=== PATIENT | female | born 1960 | race Caucasian/White ===

== ENCOUNTER 2017-12-28 01:52 | Emergency (ER) | payer OTHER | END 2017-12-28 05:02 | disposition home or self-care (01) | LOC: FTE 01:52 | DX: J20.9 Acute bronchitis, unspecified (principal); I10 Essential (primary) hypertension; Z79.82 Long term (current) use of aspirin | CPT/HCPCS: 71045; 87880; 99284-25 ==

== ENCOUNTER → 2019-07-24 | Emergency (ER) | payer OTHER ==
[2019-07-24] MEDS: TETRACAINE 0.5% 4 ML OPH BOTH EYES (09:03)
[2019-07-24] MEDS: FLUORESCEIN STRIP BOTH EYES (09:03)
== END | disposition home or self-care (01) ==
LOC: FTE 08:31
DX: T54.91XA Toxic effect of unspecified corrosive substance, accidental (unintentional), initial encounter (principal); I10 Essential (primary) hypertension; X58.XXXA Exposure to other specified factors, initial encounter; Y92.9 Unspecified place or not applicable; Z79.82 Long term (current) use of aspirin
CPT/HCPCS: 99283; Z7610